=== PATIENT | male | born 1995 | race Caucasian/White ===

== ENCOUNTER → 2016-11-04 | Outpatient (CLI) | payer OTHER ==
--- NOTE | ~2016-11-04 | EE ---
Unit #: [id number] #: [id number] Patient: SURJIT GUAMAN [id number] [address] [address] [id number] O MR#: [id number] NAME: SURJIT GUAMAN : 1995 SEX: M STUDY DATE/TIME: 11/04/2016 UNIT: CEEG ROOM: STUDY DESCRIPTION: EEG Attending Physician: Alisia Lantigua M.D. Referring Physician: Alisia Lantigua M.D. Primary Care Physician: No Primary Care Physician NEURODIAGNOSTICS REPORT EXAM EEG REASON FOR STUDY Seizures. [employer] TECHNICAL INFORMATION This is a routine EEG performed using the standard International 10-20 System of electrode placement. Photic stimulation was performed. Hyperventilation was also performed. REPORT Throughout the entire EEG, the best background rhythm seen is approximately 11-12 Hz. This rhythm is seen in both posterior head regions symmetrically and does attenuate to eye opening and closure. Hyperventilation as performed which did not elicit any abnormal build-up. Photic stimulation was also performed which did not elicit any epileptiform abnormalities. However, a decent photic driving response was seen. There was no sleep recorded during the EEG. Throughout the entire study, there were no electrocardiographic seizures recorded nor were there any independent epileptiform abnormalities seen. INTERPRETATION This is a normal awake EEG. A normal EEG does not rule out the possibility of a seizure disorder. Clinical correlation is advised. Dictated by... Rosalino Stanford II., M.D. GWS/df TD: 11/09/2016 13:22 JOB #: [id number] Unit #: [id number] #: [id number] Patient: SURJIT GUAMAN NEURODIAGNOSTICS REPORT Page 1 of 1 X NEURODIAGNOSTICS REPORT
== END | disposition home or self-care (01) ==
LOC: CEEG 07:30
DX: G40.909 Epilepsy, unspecified, not intractable, without status epilepticus (principal)
CPT/HCPCS: 95816